=== PATIENT | female | born 1945 | race Caucasian/White ===

== ENCOUNTER → 2017-09-01 08:49 | Outpatient (CLI) | payer MEDICARE, OTHER, SELFPAY ==
--- NOTE | 2017-09-01 | DI.MG.S_ITS ---
BILATERAL DIGITAL SCREENING MAMMOGRAM 3D/2D WITH CAD POST LUMPECTOMY: 09/01/2017 CLINICAL: Routine screening. Personal history of left breast cancer. Comparison is made to exams dated: 07/01/2016 mammogram, 06/05/2015 mammogram, and 05/28/2014 mammogram - [facility]. There are scattered fibroglandular elements in both breasts. Current study was also evaluated with a Computer Aided Detection (CAD) system. There are post operative findings in the left breast. No significant masses, calcifications, or other findings are seen in either breast. There has been no significant interval change. IMPRESSION: NEGATIVE There is no mammographic evidence of malignancy. A 1 year screening mammogram is recommended. This exam was interpreted at Station ID: [id number]. NOTE: For mammograms, a report in lay terms will be sent to the patient. Approximately 15% of breast malignancies will not be visualized mammographically. In the management of a palpable breast mass, a negative mammogram must not discourage biopsy of a clinically suspicious lesion. Electronically Signed By: Amanda dover/katie:09/01/2017 10:28:55 copy to: Leslie Desir letter sent: Normal Exam ACR BI-RADS Category 1: Negative 3341F
[2017-09-03 15:39] LABS: Cancer Antigen 27.29 22 U/mL (< 38)
== END ==
PROVIDERS: Visit Provider Nurse Practitioner Gerontology
DX: Z12.31 Encounter for screening mammogram for malignant neoplasm of breast (principal); Z85.3 Personal history of malignant neoplasm of breast
CPT/HCPCS: 36415; 77063; 77067; 86300

== ENCOUNTER → 2018-09-14 12:07 | Outpatient (CLI) | payer MEDICARE, OTHER, SELFPAY ==
--- NOTE | 2018-09-14 | DI.MG.S_ITS ---
BILATERAL DIGITAL SCREENING MAMMOGRAM 3D/2D WITH CAD POST LUMPECTOMY: 09/14/2018 CLINICAL: Routine screening. Personal history of left breast cancer. Comparison is made to exams dated: 09/01/2017 mammogram, 07/01/2016 mammogram, 06/05/2015 mammogram, 05/28/2014 mammogram, 05/09/2012 mammogram, and 05/05/2011 mammogram - [facility]. There are scattered fibroglandular elements in both breasts. Current study was also evaluated with a Computer Aided Detection (CAD) system. There are benign post operative findings in the left breast. There is a mole marker on the right breast. No significant masses, calcifications, or other findings are seen in either breast. There has been no significant interval change. IMPRESSION: There is no mammographic evidence of malignancy. A 1 year screening mammogram is recommended. This exam was interpreted at Station ID: [id number]. NOTE: For mammograms, a report in lay terms will be sent to the patient. Approximately 15% of breast malignancies will not be visualized mammographically. In the management of a palpable breast mass, a negative mammogram must not discourage biopsy of a clinically suspicious lesion. Electronically Signed By: Carlos reid/katie:09/15/2018 12:29:14 copy to: TALA GREEN letter sent: Normal Exam ACR BI-RADS Category 2: Benign Finding(s) 3342F
== END ==
PROVIDERS: PCP Family Medicine; Visit Provider Internal Medicine Hematology & Oncology
DX: Z12.31 Encounter for screening mammogram for malignant neoplasm of breast (principal); Z85.3 Personal history of malignant neoplasm of breast
CPT/HCPCS: 77063; 77067

== ENCOUNTER → 2018-09-14 12:15 | Outpatient (CLI) | payer MEDICARE, OTHER, SELFPAY ==
[2018-09-14 13:16] LABS: Alanine Aminotransferase 18 IU/L (9-52); Albumin 4.9 g/dL (3.5-5.0); Albumin Globulin Ratio 1.8 (1.0-2.8); Alkaline Phosphatase 91 U/L (38-126); Aspartate Aminotransferase 19 IU/L (14-36); Bilirubin Total 0.3 mg/dL (0.2-1.3); Blood Urea Nitrogen 16 mg/dL (7-17); Calcium 10.1 mg/dL (8.4-10.2); Carbon Dioxide 25 mmol/L (22-32); Chloride 105 mmol/L (98-107); Estimated Glomerular Filt Rate > 60.0 mL/min (>60); Globulin 2.8 g/dL (1.7-4.1); Glucose 102 mg/dL (80-110); HEMOLYSIS < 15 (0-50); Potassium 4.1 mmol/L (3.4-5.1); Sodium 143 mmol/L (137-145); Total Protein 7.7 g/dL (6.3-8.2)
[2018-09-16 16:22] LABS: Cancer Antigen 27.29 22 U/mL (< 38)
== END ==
PROVIDERS: PCP Family Medicine; Visit Provider Internal Medicine Hematology & Oncology
DX: C50.919 Malignant neoplasm of unspecified site of unspecified female breast (principal)
CPT/HCPCS: 36415; 80053; 86300

== ENCOUNTER → 2018-11-09 13:13 | Outpatient (CLI) | payer MEDICARE, OTHER, SELFPAY | PROVIDERS: PCP Family Medicine; Visit Provider Internal Medicine Hematology & Oncology | DX: C50.919 Malignant neoplasm of unspecified site of unspecified female breast (principal); M81.0 Age-related osteoporosis without current pathological fracture; Z78.0 Asymptomatic menopausal state; Z90.722 Acquired absence of ovaries, bilateral | CPT/HCPCS: 77080; 77081 ==

== ENCOUNTER → 2020-08-17 12:47 | Outpatient (CLI) | payer MEDICARE, OTHER, SELFPAY ==
--- NOTE | 2020-08-17 12:49 | DI.MG.S_ITS ---
BILATERAL DIGITAL SCREENING MAMMOGRAM 3D/2D WITH CAD: 08/17/2020 CLINICAL: Routine screening. Personal history of left breast cancer. Comparison is made to exams dated: 09/14/2018 mammogram, 09/01/2017 mammogram, and 07/01/2016 mammogram - [facility]. There are scattered fibroglandular elements in both breasts. Current study was also evaluated with a Computer Aided Detection (CAD) system. There is a new 0.6 cm irregular equal density focal asymmetry with an indistinct margin in the right breast at 11 o'clock middle depth 5.5 cm from the nipple. No other significant masses, calcifications, or other findings are seen in either breast. IMPRESSION: INCOMPLETE: NEEDS ADDITIONAL IMAGING EVALUATION The new 0.6 cm irregular equal density focal asymmetry in the right breast is indeterminate. Additional views with possible ultrasound are recommended. This exam was interpreted at Station ID: [id number]. NOTE: For mammograms, a report in lay terms will be sent to the patient. Approximately 15% of breast malignancies will not be visualized mammographically. In the management of a palpable breast mass, a negative mammogram must not discourage biopsy of a clinically suspicious lesion. Electronically Signed By: Mega Rowe M.D., jr/katie:08/19/2020 08:30:41 copy to: TALA GREEN copy to: BRIAN MCDANIELS letter sent: Additional Imaging Needed ACR BI-RADS Category 0: Incomplete 3340F
== END ==
PROVIDERS: PCP Family Medicine; Referring Provider Internal Medicine Hematology & Oncology; Visit Provider Internal Medicine Hematology & Oncology
DX: Z12.31 Encounter for screening mammogram for malignant neoplasm of breast (principal); Z85.3 Personal history of malignant neoplasm of breast
CPT/HCPCS: 77063; 77067

== ENCOUNTER → 2020-09-12 12:50 | Outpatient (CLI) | payer MEDICARE, OTHER, SELFPAY ==
--- NOTE | 2020-09-12 | DI.MG.S_ITS ---
UNILATERAL RIGHT DIGITAL DIAGNOSTIC MAMMOGRAM 3D/2D WITH ADDITIONAL VIEWS: 09/12/2020 CLINICAL: Additional evaluation requested from prior study. Comparison is made to exams dated: 08/17/2020 mammogram, 09/14/2018 mammogram, and 09/01/2017 mammogram - [facility]. There are scattered fibroglandular elements in right breast. There is a 0.5 cm oval low density focal asymmetry with a circumscribed margin in the right breast at 11 o'clock middle depth 6.5 cm from the nipple. This is seen in additional views. No other significant masses or calcifications are seen in the breast. IMPRESSION: INCOMPLETE: NEEDS ADDITIONAL IMAGING EVALUATION The 0.5 cm oval low density focal asymmetry in the right breast remains indeterminate. An ultrasound is recommended. This was performed immediately following this exam. This exam was interpreted at Station ID: [id number]. NOTE: For mammograms, a report in lay terms will be sent to the patient. Approximately 15% of breast malignancies will not be visualized mammographically. In the management of a palpable breast mass, a negative mammogram must not discourage biopsy of a clinically suspicious lesion. Electronically Signed By: Jolie lee/:09/12/2020 13:18:58 copy to: TALA GREEN copy to: BRIAN HELM BI-RADS Category 0: Incomplete 3340F
--- NOTE | 2020-09-12 12:52 | DI.US.S_ITS ---
LIMITED ULTRASOUND OF RIGHT BREAST: 09/12/2020 CLINICAL: Patient returns today to evaluate a focal asymmetry in the right breast. Comparison is made to exams dated: 09/12/2020 mammogram, 08/17/2020 mammogram, 09/14/2018 mammogram, 09/01/2017 mammogram, 07/01/2016 mammogram, and 06/05/2015 mammogram - [facility]. Color flow and real-time ultrasound of the right breast 11 o'clock region were performed. Real-time ultrasonography of right breast was performed with computer guidance to assure complete coverage of the breast tissue and to provide a uniform data set. Images were transferred to a viewing station for 3-D rendering. There is a 0.6 cm x 0.5 cm x 0.4 cm oval cyst with a smooth internal wall in the right breast at 11 o'clock middle depth 4 cm from the nipple. This oval cyst displays a well-defined boundary and minimal internal complexity. This correlates with mammography findings. Color flow imaging demonstrates that there is no vascularity present. IMPRESSION: PROBABLY BENIGN The 0.6 cm cyst in the right breast corresponds to the subtle mammographic finding, most likely is a complicated cyst and is probably benign. A follow-up right ultrasound in 6 months is recommended to demonstrate stability. Findings and recommendations were conveyed to the patient at time of exam. This exam was interpreted at Station ID: [id number]. Electronically Signed By: Jolie lee/:09/12/2020 14:16:32 copy to: TALA GREEN copy to: BRIAN MCDANIELS letter sent: Followup Recommended Ultrasound BI-RADS: 3 Probably benign
== END ==
PROVIDERS: PCP Family Medicine; Referring Provider Internal Medicine Hematology & Oncology; Visit Provider Internal Medicine Hematology & Oncology
DX: C50.919 Malignant neoplasm of unspecified site of unspecified female breast (principal); R92.8 Other abnormal and inconclusive findings on diagnostic imaging of breast; N60.01 Solitary cyst of right breast
CPT/HCPCS: 76642; 77065; G0279

== ENCOUNTER → 2021-03-20 10:37 | Outpatient (CLI) | payer MEDICARE, OTHER, SELFPAY ==
--- NOTE | 2021-03-20 10:39 | DI.US.S_ITS ---
LIMITED ULTRASOUND OF RIGHT BREAST AND AXILLA: 03/20/2021 CLINICAL: Patient returns for a 6 month follow up of the right breast. Comparison is made to exams dated: 09/12/2020 ultrasound, 09/12/2020 mammogram, 08/17/2020 mammogram, 09/14/2018 mammogram, 09/01/2017 mammogram, and 07/01/2016 mammogram - [facility]. Color flow ultrasound of the right breast 11 o'clock, and axilla regions was performed. Babra scale images of the real-time examination were reviewed. There is a 0.4 cm x 0.4 cm x 0.3 cm oval cyst with a smooth internal wall in the right breast at 11 o'clock middle depth 4 cm from the nipple. This oval cyst displays a well-defined boundary. This abnormality is decreased in size and correlates with mammography findings. Color flow imaging demonstrates that there is no vascularity present. No significant abnormalities were seen sonographically in the right axilla. IMPRESSION: PROBABLY BENIGN The 0.4 cm x 0.4 cm x 0.3 cm oval cyst in the right breast most likely is a complicated cyst and is probably benign. A follow-up mammogram and an ultrasound in 6 months is recommended to demonstrate stability. This exam was interpreted at Station ID: [id number]. Electronically Signed By: Rob arita/katie:03/20/2021 11:26:54 copy to: TALA GREEN copy to: BRIAN MCDANIELS letter sent: Followup Recommended Ultrasound BI-RADS: 3 Probably benign
== END ==
PROVIDERS: PCP Family Medicine; Referring Provider Internal Medicine Hematology & Oncology; Visit Provider Internal Medicine Hematology & Oncology
DX: C50.919 Malignant neoplasm of unspecified site of unspecified female breast (principal); N60.01 Solitary cyst of right breast
CPT/HCPCS: 76642

== ENCOUNTER → 2024-03-07 11:39 | Outpatient (CLI) | payer MEDICARE, OTHER, SELFPAY ==
--- NOTE | 2024-03-07 11:42 | DI.MG.S_ITS ---
BILATERAL DIGITAL SCREENING MAMMOGRAM 3D/2D WITH CAD POST LUMPECTOMY: 03/07/2024 CLINICAL: Routine screening. Personal history of left breast cancer. Comparison is made to exams dated: 11/09/2022 mammogram - out side, 08/17/2020 mammogram, and 09/14/2018 mammogram - [facility]. There are scattered areas of fibroglandular density (category b / 25%-50% glandular tissue). Current study was also evaluated with a Computer Aided Detection (CAD) system. There are benign post operative findings in the left breast. No significant masses, calcifications, or other findings are seen in either breast. There has been no significant interval change. IMPRESSION: BENIGN There is no mammographic evidence of malignancy. A 1 year screening mammogram is recommended. This exam was interpreted at Station ID: [id number]. NOTE: For mammograms, a report in lay terms will be sent to the patient. Approximately 15% of breast malignancies will not be visualized mammographically. In the management of a palpable breast mass, a negative mammogram must not discourage biopsy of a clinically suspicious lesion. Electronically Signed By: Rob arita/katie:03/07/2024 15:47:55 letter sent: Normal Exam ACR BI-RADS Category 2: Benign
== END ==
PROVIDERS: PCP Family Medicine; Referring Provider Family Medicine; Visit Provider Family Medicine
DX: Z12.31 Encounter for screening mammogram for malignant neoplasm of breast (principal); Z85.3 Personal history of malignant neoplasm of breast
CPT/HCPCS: 77063; 77067

== ENCOUNTER → 2024-11-22 12:32 | Outpatient (CLI) | payer MEDICARE, OTHER, SELFPAY ==
--- NOTE | 2024-11-22 12:36 | DI.ECHO.S_ITS ---
[facility] : : [id number] : : [place] : : [id number] : : Phone: [phone] Echocardiogram Report + + :Name: NARCISO FAIRCHILD Study Date: 11/22/2024 Height: 61 in : :[facility] ReadingLocation: Weight: 129 lb : : Gender: Female BSA: 1.6 m2 : :: 1945 Age: 78 yrs BP: 133/74 mmHg: :Reason For Study: SHORTNESS OF BREATH : :Ordering Physician: FLACO, : :YASMINE Performed By: Sejal Parker : :Referring: YASMINE SAM : + + Interpretation Summary The left ventricular cavity is small. The left ventricle is hyperdynamic. The ejection fraction is estimated to be 70-75%. No significant LV outflow tract obstruction. The right ventricle is normal in size and function. There is discrete nodular thickening of the non- coronary cusp. There is no aortic valve stenosis. There is mild aortic regurgitation. There is mild tricuspid regurgitation. The IVC is of normal diameter and collapses greater than 50% with a sniff. This suggests a low right atrial pressure of 3 mm Hg. There is mild luminal irregularity and echogenicity in the abdominal aorta, suggestive of aortic atherosclerotic disease. Mild atherosclerotic plaque(s) in the aortic arch. Procedure: A two-dimensional transthoracic echocardiogram with color flow and Doppler was performed. The study quality was technically adequate. There is no prior echocardiogram noted for this patient. The patient was in sinus rhythm with heart rates between 79-86 bpm during the exam. Left Ventricle: The left ventricular cavity is small. There is normal left ventricular wall thickness. There is no thrombus. The ejection fraction is estimated to be 70-75%. The left ventricle is hyperdynamic. There are no focal wall motion abnormalities. Diastolic parameters suggest a relaxation abnormality of the left ventricle, consistent with probable normal filling pressures. Right Ventricle: The right ventricle is normal in size and function. Atria: The left atrial size is normal. Right atrial size is normal. A prominent eustachian valve is noted. There is no Doppler evidence for an interatrial shunt. Mitral Valve: The mitral valve leaflets appear to open well. There is mild mitral annular calcification. There is mild mitral regurgitation. Aortic Valve: The aortic valve is trileaflet. The aortic valve is moderately calcified. There is discrete nodular thickening of the non- coronary cusp. There is no aortic valve stenosis. There is mild aortic regurgitation. Tricuspid Valve: The tricuspid valve leaflets are thin and pliable. There is mild tricuspid regurgitation. Pulmonary artery pressures cannot be estimated because of the lack of a measurable TR jet velocity. Pulmonic Valve: The pulmonic valve leaflets are thin and pliable; valve motion is normal. There is mild pulmonic regurgitation. Great Vessels: The aortic root is normal size. The dimensions of the ascending aorta are normal. There is mild luminal irregularity and echogenicity in the abdominal aorta, suggestive of aortic atherosclerotic disease. Mild atherosclerotic plaque(s) in the aortic arch. The IVC is of normal diameter and collapses greater than 50% with a sniff. This suggests a low right atrial pressure of 3 mm Hg. Pericardium/ Pleura There is no pericardial effusion. There is no pleural effusion. MMode/2D Measurements & Calculations LVIDd: 3.7 cm LVOT diam: 2.1 cm LVIDs: 2.2 cm Ao root diam: 2.8 cm FS: 40.3 % asc Aorta Diam: 3.2 cm IVSd: 0.75 cm Ao Arch Diam (Prox Trans): 2.5 cm LVPWd: 0.72 cm LV redding. diameter/BSA (cm/m^2): 2.4 LV sys. diameter/BSA (cm/m^2): 1.4 LA A2 area: 15.4 cm2 RA long axis: 4.0 cm LA A4 area: 7.6 cm2 RA area: 12.1 cm2 LA length (vol): 4.0 cm RA vol: 30.9 ml LA vol: 25.1 ml RA : 19.7 ml/m2 LA vol index: 16.0 ml/m2 IVC diam: 1.9 cm RVD1 (basal): 3.5 cm RVD2 (mid): 2.9 cm TAPSE: 2.3 cm Doppler Measurements & Calculations Ao V2 max: 165.5 cm/sec LVOT Max Omi: 128.0 cm/sec Ao V2 mean: 113.4 cm/sec LV V1 max P.6 mmHg Ao max P.0 mmHg LV V1 VTI: 22.6 cm Ao mean P.7 mmHg VIPUL(I,D): 2.5 cm2 Ao V2 VTI: 30.4 cm VIPUL(V,D): 2.6 cm2 sev ratio: 0.75 VIPUL indexed to BSA (cm^2/m^2): 1.6 MV E max omi: 68.9 cm/sec TR max omi: 231.9 cm/sec MV A max omi: 80.2 cm/sec TR max P.5 mmHg MV E/A: 0.86 PA V2 max: 107.1 cm/sec Med Peak E' Omi: 6.7 cm/sec PA V2 mean: 71.5 cm/sec E/E' med: 10.4 PA mean P.3 mmHg Lat Peak E' Omi: 6.1 cm/sec PA pr(Accel): 43.9 mmHg E/E' lat: 11.3 E/e' average: 10.8 MV dec time: 0.25 sec SV(LVOT): 75.9 ml Reading Physician:04:12 PM
--- NOTE | 2024-11-22 18:05 | DI.NM.S_ITS ---
DATE OF SERVICE: 11/22/2024 EXERCISE STRESS TEST INDICATIONS: Exertional shortness of breath, fatigue. CARDIAC STRESS: The patient walked on Amol protocol for 3 minutes and 15 seconds, 4.6 METS of workload, maximum heart rate 120, which was 85% of target heart rate and EYAL positive 31%. The patient unable to keep up with treadmill due to balance issues. Baseline rhythm was sinus. During stress, no convincing ischemic changes seen. No significant arrhythmias. No chest pain. Had shortness of breath. Maximum blood pressure 162/80. CONCLUSION: Exercise stress test is negative for inducible ischemia. Diminished exercise tolerance. The patient unable to keep up with treadmill due to balance issues. Normal hemodynamic response. No significant arrhythmias. No chest pain. Had shortness of breath. Correlate clinically. Cierra Mejia - JESS/cruzito/OLIVIER doc#: [id number]/job#: [id number] dd: 11/22/2024 17:52:00 dt: 11/22/2024 18:02:00 DICTATING /COPIES TO: Christina Yang MD COPIES MNE: ANA;
== END ==
LOC: ECHO 12:33
PROVIDERS: PCP Family Medicine; Referring Provider Internal Medicine Cardiovascular Disease; Visit Provider Internal Medicine Cardiovascular Disease
DX: I08.3 Combined rheumatic disorders of mitral, aortic and tricuspid valves (principal); R06.02 Shortness of breath; I70.0 Atherosclerosis of aorta
CPT/HCPCS: 93017; 93306